=== PATIENT | male | born 1995 | race Caucasian/White ===

== ENCOUNTER 2020-05-14 12:31 | Outpatient (NON) | payer OTHER, SELFPAY ==
[2020-05-15 00:38] LABS: SARS-CoV-2 RNA PCR Negative
== END 2020-05-14 12:32 ==
PROVIDERS: PCP Physician Assistant; Visit Provider Physician Assistant
DX: Z20.828 Contact with and (suspected) exposure to other viral communicable diseases (principal); R68.89 Other general symptoms and signs
CPT/HCPCS: 87635; C9803; U0003

== ENCOUNTER → 2020-09-18 11:18 | Outpatient (CLI) | payer OTHER, SELFPAY ==
[2020-09-18 22:34] LABS: SARS-CoV-2 RNA PCR Negative
== END ==
PROVIDERS: PCP Physician Assistant; Visit Provider Physician Assistant
DX: Z20.822 Contact with and (suspected) exposure to COVID-19 (principal)
CPT/HCPCS: C9803; U0003; U0005